=== PATIENT | male | born 1945 | race Caucasian/White ===

== ENCOUNTER → 2020-09-12 10:32 | Outpatient (CLI) | payer OTHER, SELFPAY ==
--- NOTE | 2020-09-12 10:35 | ECHOD_ITS ---
Reason For Study: CHRONIC ISCHEMIC HEART DISEASE Procedure This was a 2D Doppler, Color Flow transthoracic echocardiogram. The exam was of adequate technical quality. Exam performed in department. Left Ventricle Normal LV size. Mild segmental systolic dysfunction (see wall motion). The estimated ejection fraction is 40 %. Unable to assess diastolic dysfunction. Right Ventricle Normal RV size. Normal systolic function. Atria The left atrium is moderately enlarged. The right atrium is mildly enlarged. No doppler evidence for ASD. Mitral Valve There is no mitral annular calcification. Mild focal mitral valve calcification of the anterior leaflet. The mitral valve chordae are thickened and/or calcified. Mild-Moderate (1-2+) eccentric mitral valve insufficiency. Tricuspid Valve Normal tricuspid valve. Mild tricuspid valve insufficiency. Right ventricular systolic pressure estimated to be 38 mmHg. Aortic Valve Trisinus/trileaflet aortic valve. Mild focal aortic valve calcification. Pulmonic Valve The pulmonic valve is not well visualized. Mild (1+) pulmonic valve insufficiency. Great Vessels Normal sized aortic root. Pericardium/Pleural No pericardial effusion. MMode/2D Measurements & Calculations LVIDd: 4.7 cm IVSd: 1.1 cm Ao root diam: 3.3 cm LVIDs: 3.4 cm LVPWd: 1.1 cm RVDd: 4.4 cm FS: 27.9 % LAV(MOD-bp): 67.8 ml LVAd ap4: 30.6 cm2 LVAd ap2: 28.0 cm2 LAV(MOD-bp) Indexed: 41.4 ml/m2 LVLd ap4: 7.7 cm LVLd ap2: 7.4 cm LAV(MOD-sp2): 77.5 ml EDV(MOD-sp4): 100.7 ml EDV(MOD-sp2): 89.2 ml LAV(MOD-sp4): 57.8 ml EDV(sp4-el): 102.7 ml EDV(sp2-el): 89.6 ml LVAs ap4: 23.5 cm2 LVAs ap2: 21.9 cm2 LVLs ap4: 7.2 cm LVLs ap2: 6.8 cm ESV(MOD-sp4): 63.4 ml ESV(MOD-sp2): 58.3 ml ESV(sp4-el): 65.6 ml ESV(sp2-el): 59.5 ml EF(MOD-sp4): 37.1 % EF(MOD-sp2): 34.6 % EF(sp4-el): 36.1 % SV(MOD-sp4): 37.3 ml SV(MOD-sp2): 30.9 ml SV(sp4-el): 37.1 ml LA dimension(2D): 4.4 cm LA A4 area: 21.2 cm2 RA A4 area: 20.9 cm2 Doppler Measurements & Calculations MV E max kathleen: 92.6 cm/sec Ao V2 max: 114.3 cm/sec LV V1 max: 85.2 cm/sec Ao max P.3 mmHg LV V1 max P.9 mmHg PA V2 max: 78.7 cm/sec TR max kathleen: 296.3 cm/sec TR max P.1 mmHg ECHO/Echo Complete Interpretation Summary Mild segmental systolic dysfunction (see wall motion). The estimated ejection fraction is 40 %. The left atrium is moderately enlarged. The right atrium is mildly enlarged. Mild focal mitral valve calcification of the anterior leaflet. The mitral valve chordae are thickened and/or calcified. Mild-Moderate (1-2+) eccentric mitral valve insufficiency. Mild tricuspid valve insufficiency. Mild focal aortic valve calcification. Mild (1+) pulmonic valve insufficiency. Right ventricular systolic pressure estimated to be 38 mmHg. Unable to assess diastolic dysfunction. Comment: Underlying rhythm appearing c/w atrial fibrillation. Ordering Physician: Errol Oneal Referring Physician: Errol Oneal Performed By: Daphnie Eckert RDCS
== END ==
PROVIDERS: Referring Provider Orthopaedic Surgery; Visit Provider Orthopaedic Surgery
DX: I25.9 Chronic ischemic heart disease, unspecified (principal)
CPT/HCPCS: 93306

== ENCOUNTER 2024-10-29 16:48 | Emergency (ER) | payer OTHER, SELFPAY ==
[2024-10-29 17:40] VITALS: O2SAT 93
== END 2024-10-29 23:59 | disposition short-term general hospital (02) ==
PROVIDERS: Emergency Provider Emergency Medicine; Visit Provider Emergency Medicine
DX: I63.9 Cerebral infarction, unspecified (principal); R29.701 NIHSS score 1; R41.0 Disorientation, unspecified; R47.1 Dysarthria and anarthria; I10 Essential (primary) hypertension; Z87.891 Personal history of nicotine dependence
CPT/HCPCS: 70450; 70496; 70498; 72125; 93005; Q9967; A4216